=== PATIENT | male | born 1970 | race Caucasian/White ===

== ENCOUNTER 2022-12-15 11:26 | Emergency (ER) | payer OTHER, SELFPAY ==
[2022-12-15 13:45] VITALS: BP 122/86; PULSE 94; RESP 16; TEMP 36.4; O2SAT 98
[2022-12-15 13:47] VITALS: BP 122/86; PULSE 94; RESP 18; TEMP 36.8; O2SAT 98; BMI 28.2
--- NOTE | 2022-12-15 14:03 | ED_ITS ---
HPI - Wound/Laceration General Chief Complaint: Laceration/Wound Stated Complaint: Lac left pointer finger Time Seen by Provider: 12/15/22 13:35 History of Present Illness HPI narrative: This 52-year-old male comes in with an injury to his left index finger. He was at work cutting some food and accidentally cut off a portion of the thenar aspect of the distal portion of left index finger. He took part of his nail in this process. He has an area about 1 cm in diameter where skin is avulsed. Bleeding is controlled. He states that his tetanus is not up-to-date. Related Data Home Medications Medication Instructions Recorded Confirmed atorvastatin 40 mg tablet 40 mg PO DAILY 12/15/22 12/15/22 metformin 1,000 mg tablet 500 mg PO BID 12/15/22 12/15/22 Allergies Allergy/AdvReac Type Severity Reaction Status Date / Time No Known Drug Allergies Allergy Verified 12/15/22 13:52 Review of Systems Status of ROS: Reports: 10 or more systems reviewed and unremarkable except as noted in History and below Narrative: Constitutional: No fevers, no weight gain or loss. Eyes: No discharge. No vision changes. HENT: No congestion, no sore throat, no ear pain. Cardiovascular: No chest pain, no palpitations. Respiratory: No shortness of breath, no wheezes, no cough. Gastrointestinal: No abdominal pain, no vomiting, no diarrhea. Genitourinary: No dysuria, no hematuria. Musculoskeletal: Normal range of motion. Left index finger injury as described above. Skin: No rashes, no pruritis. Neurological: No dizziness, weakness, sensory change, speech change. Endo/Heme/Allergies: No bruising or bleeding. No polydipsia. Pysch: no suicidality, no anxiety, no insomnia. All other systems reviewed and are negative. Exam Narrative: Exam Narrative: Constitutional: Well-developed, well-nourished, no acute distress. HEENT: Normocephalic, atraumatic. Neck: Normal range of motion. Nontender. Supple. Heart: Regular. No murmurs. Normal rate. Intact distal pulses. Lungs: Clear to auscultation. No chest discomfort. No wheezes, rhonchi, or rales. Abdomen: Normal bowel sounds. Nontender. No rebound tenderness. Genitalia: Deferred. Back: No midline tenderness. Normal range of motion. Extremities: Normal range of motion. Finger tip avulsion of the left index finger. The area avulsed is approximately 1 cm in diameter. Bleeding is stopped currently. Skin: Intact. No rash. Warm. No erythema or pallor. Neurologic: No altered sensation. No weakness. Alert and oriented. Psychiatric: No suicidality. No anxiety or depression. No insomnia. Nursing notes and vitals signs are reviewed. Const: Vital Signs, click to edit/add: Vital Signs - 24 hr 12/15/22 13:47 12/15/22 14:43 12/15/22 14:40 Temperature 98.2 F 98.0 F 98.0 F Pulse Rate [Right Pulse Oximeter] 94 89 89 Respiratory Rate 18 16 16 Blood Pressure [Ri ght Upper Arm] 122/86 130/86 130/86 Pulse Oximetry 98 98 Oxygen Delivery Me thod Room Air Room Air 12/15/22 13:45 Temperature 97.6 F Pulse Rate [Right Pulse Oximeter] 94 Respiratory Rate 16 Blood Pressure [Ri ght Upper Arm] 122/86 Pulse Oximetry 98 Oxygen Delivery Me thod Room Air Course Vital Signs Vital signs: Initial Vital Signs Temperature 97.6 F 12/15/22 13:45 Temperature Source Temporal Artery Scan 12/15/22 13:45 Pulse Rate 94 12/15/22 13:45 Respiratory Rate 16 12/15/22 13:45 Blood Pressure 122/86 12/15/22 13:45 Blood Pressure Mean 98 12/15/22 13:45 Pulse Oximetry 98 12/15/22 13:45 Oxygen Delivery Method 12/15/22 13:45 Vital Signs Temperature 97.6 F 12/15/22 13:45 Pulse Rate 94 12/15/22 13:45 Respiratory Rate 16 12/15/22 13:45 Blood Pressure 122/86 12/15/22 13:45 Pulse Oximetry 98 12/15/22 13:45 Oxygen Delivery Method 12/15/22 13:45 Temperature 98.0 F 12/15/22 14:43 Pulse Rate 89 12/15/22 14:43 Respiratory Rate 16 12/15/22 14:43 Blood Pressure 130/86 12/15/22 14:43 Pulse Oximetry 98 12/15/22 14:40 Oxygen Delivery Method 12/15/22 14:40 MDM - Wound/Laceration MDM Narrative Medical decision making narrative: This patient comes in with a finger tip avulsion as described above. Discharge Plan Discharge Clinical Impression: Fingertip avulsion Patient Disposition: Home, Self-Care Condition: Improved Instructions: Skin Avulsion (ED) Additional Instructions: Leave dressing in place for the next 2-3 days, after that you should be okay with a Band-Aid. Okay to return to work as long as wound is covered and dry. Return for signs of infection. Tetanus updated today. Prescriptions: No Action atorvastatin 40 mg tablet 40 mg PO DAILY metformin 1,000 mg tablet 500 mg PO BID Stand Alone Forms: [employer] Info Instructions
[2022-12-15] MEDS: TETANUS/DIPHTH/PERTUSSIS 0.5 ML SYRINGE IM (14:26)
[2022-12-15 14:40] VITALS: BP 130/86; PULSE 89; RESP 16; TEMP 36.7; O2SAT 98
[2022-12-15 14:43] VITALS: BP 130/86; PULSE 89; RESP 16; TEMP 36.7
--- NOTE | 2022-12-15 14:45 | PC.NURSE ---
discharge. pt was very pleasant. tetanus shot given right arm,. went over discharge instruction with pt and orthopedic assistant. answered all questions he left on his own .
== END 2022-12-15 14:40 | disposition home or self-care (01) ==
PROVIDERS: Emergency Provider Emergency Medicine
DX: S61.311A Laceration without foreign body of left index finger with damage to nail, initial encounter (principal); W26.0XXA Contact with knife, initial encounter; Y99.0 Civilian activity done for income or pay
CPT/HCPCS: 90471; 90715; 99283; 99284; T1013